=== PATIENT | female | born 1995 | race Caucasian/White ===

== ENCOUNTER 2024-03-29 11:17 | Emergency (ER) | payer BC, SELFPAY ==
[2024-03-29 11:19] VITALS: BP 135/95
--- NOTE | 2024-03-29 11:49 | ED.GENMED ---
History of Present Illness
General
Chief Complaint: Headache
Source: patient
Time Seen by Provider: 03/29/24 11:31
History of Present Illness
History of Present Illness:
28yoF with no significant past medical history presenting for evaluation of a headache. Headache began gradually around 4pm yesterday afternoon while she was getting ready to leave work. The pain is located frontally and bitemporally. She has not
taken anything OTC for her symptoms. She currently rates her pain as a 7/10 in severity. She was at work today and she was speaking to a customer and 'said a sentence backwards' so decided to go to urgent care. Urgent care sent the patient to the ED
for evaluation.
This is her 3rd headache within the past 2 months which has been almost identical. She typically starts with a headache which is then followed by photophobia, nausea, lightheadedness, and shakiness. The headaches typically last several hours to 1
day before resolving on their own. She denies any prior history of migraines although she has had intermittent headaches for several years.
Past History
Past History
ED Past Medical History: None
ED Past Surgical History: Other (wisdom teeth removed)
Social History
Tobacco: Non-smoker
Alcohol: Occasional
Drug: None
Personal: Single
Employment: Employed
Phy Exam
General Physical Exam
General Presentation: well appearing and no apparent distress
General age: appears stated age
General Skin: warm and dry
General Habitus: normal
General Mental: alert
ENT Exam
ENT Exam: neck supple and normocephalic
Additional ENT: No meningismus
Eye Exam
Eye Exam: PERRL and EOMI
Pulmonary Exam
Pulmonary Exam: no respiratory distress
Neurological Exam
Neurological Exam: alert, CN II-XII intact, no motor deficits, no sensory deficits, speech normal and other (CN 2-12 intact. PERRL. EOMs intact. 5/5 strength in all extremities and gross sensation intact. Negative drift x4. Normal finger to nose and
heel to sands bilaterally. Normal gait. )
[place] Coma Scale
Eye Opening: Spontaneous
Verbal Response: Oriented
Motor Response: Obeys Commands
GCS Total Score: 15
Skin Exam
Skin Exam: normal color and warm/dry
Psychiatric Exam
Psychiatric Exam: normal mood/affect
Course
Orders/Labs/Results
Orders:
Orders
03/29/24 11:49
CT Head W/o Iv Contrast Urgent
Comment:
Reason For Exam: acute headache
0.9% Sodium Chloride 1000 ml [Nss] 1,000 ml IV BOLUS
Diphenhydramine [Benadryl] 25 mg IV NOW STA
Ketorolac [Toradol] 15 mg IV NOW STA
Magnesium Sulfate 2 Gram/50 ml [Magnesium Sulfate] 2 gram in 50 ml IV NOW
Metoclopramide [Reglan] 10 mg IV NOW STA
Test Result ONCE
03/29/24 12:06
, Urine Qualitative Screen [HCG, Urine Qualitative Screen] Urgent
Date Specimen was Collected: 03/29/24
Time Specimen was Collected: 11:52
03/29/24 13:24
Dexamethasone Sod Phosphate [Decadron] 10 mg IV NOW STA
Vital Signs
Initial and Last Documented VS:
Initial Vital Signs
Temp Pulse Resp BP Pulse Ox
98.3 F 74 16 135/95 99
03/29/24 11:19 03/29/24 11:19 03/29/24 11:19 03/29/24 11:19 03/29/24 11:19
Last Documented Vital Signs
Temp Pulse Resp BP Pulse Ox
98.3 F 60 16 95/63 98
03/29/24 11:19 03/29/24 13:30 03/29/24 13:30 03/29/24 13:30 03/29/24 13:30
MDM/Problems Addressed
Differential Diagnosis Includes:
28yoF here with a headache since yesterday. Gradual in onset. /10 in severity. Associated with nausea and photophobia. 'Said a sentence backwards earlier today.' Sent here by urgent care. VSS. She is well appearing in no distress. She is speaking
fluently without any dysarthria or aphasia. No focal neuro deficits on exam and she is ambulating with a steady gait. Differential diagnosis includes but is not limited to: migraine, tension headache, brain mass
Initial ED plan: Check urine test and CT head. IV migraine cocktail and reassess.
*Critical Care Note
Total Time (30-74mins, 75-104mins- exclusive of procedures): Not Applicable
Update Note
Update Note:
Urine HCG negative. CT head is negative for acute findings. Patient is feeling improved on reassessment. No indication for admission. Suspect migraine given history. Supportive care discussed. Advised f/u with PCP and neurology. Strict ED return
precautions discussed. She expressed understanding and is agreeable to plan. She was discharged in stable condition.
ED Attending Note
-
Portions of this chart may have been created with voice recognition software.� Occasional wrong word or��sound alike� substitutions may have occurred due to the inherent limitations of voice recognition software.
Discharge Plan
Departure
Patient Disposition: Home (Routine Discharge)
Date of Disposition: 03/29/24
Time of Disposition: 13:24
Patient with high blood pressure during this ER visit?: No
Discharge Problem:
Acute nonintractable headache
Instructions: Headache, Adult (DC)
Prescriptions:
No Action
norethindrone-ethin estradiol [Ovcon-35 (28)] 1 TAB tablet
1 tab PO Daily Qty: 30 0RF
Saccharomyces boulardii 250 MG capsule
250 mg PO DAILY Qty: 1 0RF
levofloxacin 500 MG tablet
500 mg PO DAILY Qty: 7 0RF
metronidazole 500 MG tablet
500 mg PO TID Qty: 21 0RF
Referrals:
Oxana Munguia MD [Active] -
UNKNOWN - PT DOES,NOT KNOW [Family Provider] -
Activity Restrictions/Additional Instructions:
Drink plenty of fluids and rest. Take Tylenol and ibuprofen as needed for headaches.
Please call today to schedule a follow-up with a family doctor and a neurologist.
Return to the ER with any new or worsening symptoms.
Interventions
Interventions:
*Risk Screen - Suicide Last Done: 03/29/24 11:19
*General Assessment Last Done: 03/29/24 12:20
*Neglect/Abuse Screening Last Done: 03/29/24 11:19
ED- Fall Risk Assessment Last Done: 03/29/24 12:19
*Nursing Disposition Last Done: 03/29/24 13:48
ED- Neurological Assessment Last Done: 03/29/24 12:19
Discharge Date and Time
Discharge Date/Time: 03/29/24 13:50
Print Language: FINNISH
[2024-03-29] MEDS: BENADRYL 25 MG IV (12:11)
[2024-03-29] MEDS: TORADOL 15 MG IV (12:11)
[2024-03-29] MEDS: REGLAN 10 MG IV (12:12)
[2024-03-29] MEDS: NSS 1000 IV (12:12)
[2024-03-29] MEDS: MAGNESIUM SULFATE 50 IV (12:12)
[2024-03-29 12:30] LABS: HCG, Urine Qualitative Screen Negative
[2024-03-29] MEDS: DECADRON 10 MG IV (13:27)
[2024-03-29 13:30] VITALS: BP 95/63
== END 2024-03-29 13:50 | disposition home or self-care (01) ==
LOC: EMR 11:17
PROVIDERS: Physician Assistant; EMERGENCY PHYSICIAN Emergency Medicine
DX: R51.9 Headache, unspecified (principal)
CPT/HCPCS: 99284; 70450; 81025